=== PATIENT | male | born 1960 | race Caucasian/White ===

== ENCOUNTER 2024-10-15 14:56 | Outpatient (REF) | payer MEDICAID, SELFPAY ==
[2024-10-15 12:34] LABS: Bilirubin Negative (Negative); Blood Trace-intact (Negative); Clarity Clear (Clear); Glucose Negative (Negative); Ketones Negative (Negative); Leukocyte Esterase Negative (Negative); Nitrite Negative (Negative); Urobilinogen 0.2 mg/dL (Up to 0.2); pH 6.5 (5-8)
[2024-10-15 12:59] LABS: RBC 0-2 HPF (0-2); WBC 0-2 HPF (0-5)
[2024-10-15 13:00] LABS: Bacteria Negative HPF (Negative); C & S Indicated? No; Casts Negative LPF (Negative); Crystals Negative HPF (Negative); Epithelial Cells Rare HPF (Negative); Mucus Negative (Negative)
== END 2024-10-15 14:57 | disposition home or self-care (01) ==
LOC: LBN 14:56
PROVIDERS: PCP Physician Assistant Medical; Visit Provider Nurse Practitioner Gerontology
DX: N20.0 Calculus of kidney (principal); R06.00 Dyspnea, unspecified
CPT/HCPCS: 81003; 81015

== ENCOUNTER 2025-04-19 04:55 | Outpatient (CLI) | payer MEDICAID, SELFPAY ==
--- NOTE | 2025-04-19 07:15 | DI.CT_ITS ---
Exam(s) CT ABDOMEN PELVIS WO/W EXAM: CT ABDOMEN PELVIS WO/W CLINICAL HISTORY: painless gross hematuria,r31.9. TECHNIQUE: Imaging Protocol: Axial computed tomography images with coronal and sagittal reformatted images were created and reviewed. Images were performed from the lung bases through the ischial tuberosities before IV contrast and following IV contrast using a 70 second delay, followed by 7 minutes delayed images. CONTRAST MATERIAL: Intravenous: Omnipaque 350 Contrast volume: 75 cc Oral: no COMPARISON: CT CT ABD/PELVIS W/ CONTRAST from 04/23/2024 FINDINGS: Lung Bases: Normal where visualized. Liver: Normal density. No measurable mass. Gallbladder and biliary tract: No biliary dilation. Pancreas: Normal density, no abnormal calcifications or inflammatory process. Spleen: Normal. Kidneys: Normal size, contour and axis. Multiple bilateral renal calculi. There is a 12 millimeter stone at the upper pole of the left kidney. There is a 1.7 centimeter stone at the lower pole of the left kidney. Are stones at the lower pole of the right kidney largest measuring 7 millimeters web snow and 8 millimeters. Stable small left renal cysts. No suspicious masses seen. Adrenal glands: No masses seen. Lymph nodes: Within normal limits. Abdominal Aorta: Infrarenal abdominal aortic aneurysm measuring 4.2 x 4 cm which shows significant mural thrombus. Mildly enlarged when compared with prior where it measured 3.8 cm. Soft tissues: Unremarkable. Bladder: Small urine volume. Mild diffuse wall thickening. No evidence of a mass.No evidence of calculi. Bowel: Stomach unremarkable. No obstruction or bowel wall thickening. Appendix normal. Mild sigmoid diverticulosis. Peritoneal cavity: No ascites, collection or mesenteric inflammatory response. Bones: Levoscoliosis. Bilateral L5 spondylolysis with grade 1 spondylolisthesis. Reproductive organs: Enlarged prostate, impressing on the base of the bladder. IMPRESSION: No suspicious renal mass. Multiple bilateral renal calculi, left greater than right. No evidence of hydronephrosis. Mild interval increase in size of a aortic aneurysm now measuring 4.2 x 4 cm. RADIATION DOSE DELIVERED: 1,139.71mGy.cm Total DLP DATA REPOSITORY: All CT scans at this facility are submitted to the National Radiology Data Registry (NRDR) Dose Index Registry (DIR) with the [employer] ([employer]). RADIATION OPTIMIZATION: All CT scans at this facility use at least one of these dose optimization techniques: automated exposure control; mA and/or kV adjustment per patient size (includes targeted exams where dose is matched to clinical indication); or iterative reconstruction.
[2025-04-19 13:54] LABS: Estimated GFR 84.05 (mL/min/1.73m2)
[2025-04-19] MEDS: Normal Saline Flush 10 ML SYR IVP (14:25)
[2025-04-19] MEDS: Normal Saline - Diluent 50 ML VIAL IJ (14:26)
[2025-04-19] MEDS: Omnipaque 350 MG/ML 100 ML BTL IJ (14:26)
[2025-04-19 21:44] LABS: PSA, Screening 2.0 ng/mL (<=4.5)
== END 2025-04-19 05:15 ==
LOC: DI 04:55
PROVIDERS: PCP Physician Assistant Medical; Visit Provider Nurse Practitioner Gerontology
DX: R31.9 Hematuria, unspecified (principal); R39.9 Unspecified symptoms and signs involving the genitourinary system
CPT/HCPCS: 84153; 74178; 82565; J3490